=== PATIENT | male | born 1955 | race Caucasian/White ===

== ENCOUNTER 2018-12-07 17:59 | Emergency (ER) | payer MEDICARE ==
[~2018-12-07] VITALS: Ht 165.1 cm; Wt 65.9 kg
[2018-12-07 18:05] VITALS: Ht 165.1 cm; Wt 65.9 kg
[2018-12-07 18:34] LABS: BASOPHILS 0.3 % (0-2); EOSINOPHILS 0.6 % (0-7); HEMATOCRIT 42.9 % (42.0-54.0); HEMOGLOBIN 15.1 g/dL (13.5-17.5); IMMATURE GRANULOCYTES 0.1 % (0-5); LYMPHOCYTES 14.7 % (15-50); MCH 31.9 pg (26.0-34.0); MCHC 35.2 g/dL (31.0-37.0); MCV 90.5 fL (80.0-100.0); MEAN PLATELET VOLUME 8.7 fL (7.4-10.4); MONOCYTES 6.5 % (2-11); NEUTROPHILS 77.8 % (40-80); PLATELET COUNT 244 10x3/uL (130-400); RBC 4.74 10x6/uL (4.20-6.10); RDW 14.8 % (11.5-14.5); WBC 9.3 10x3/uL (4.8-10.8)
[2018-12-07 18:51] LABS: ALBUMIN 3.7 g/dL (3.4-5.0); ALKALINE PHOSPHATASE 86 U/L (46-116); ALT (SGPT) 22 U/L (10-68); BILIRUBIN - TOTAL 0.21 mg/dL (0.2-1.3); CALC OSMOLALITY 278 mosm/kg (275-300); CALCIUM 9.5 mg/dL (8.5-10.1); CARBON DIOXIDE 27.7 mmol/L (21.0-32.0); CHLORIDE - SERUM 100 mmol/L (98-107); GLUCOSE 97 mg/dL (74-106); POTASSIUM - SERUM 4.3 mmol/L (3.5-5.1); PROTEIN - SERUM 8.1 g/dL (6.4-8.2); SODIUM 137 mmol/L (136-145); UREA NITROGEN 27 mg/dL (7-18); eGFR NON AFRICAN AMERICAN 80 mL/min (90-120)
[2018-12-07] MEDS ORDERED: LISINOPRIL-HCT1 EAC7 PO (20:54)
[2018-12-07 21:02] VITALS: BP 131/88
== END 2018-12-07 21:02 | disposition home or self-care (01) ==
LOC: D.ER 17:59
PROVIDERS: Family Medicine
DX: I10 Essential (primary) hypertension (principal); F17.200 Nicotine dependence, unspecified, uncomplicated